=== PATIENT | male | born 1955 | race Caucasian/White ===

== ENCOUNTER 2019-08-23 08:47 | Day surgery (SDC) | payer BC ==
[~2019-08-23 08:47] MED LIST: Lactated Ringers 1,000 ML IV SCH; Lidocaine 1% 4 ML ONE; Lidocaine 1%/Sod Bicarbonate in NS 8.4% 1 ML Syringe IDERM PRN; Midazolam 1 MG/ML 2 ML SDV ONE; Ondansetron 4 MG/2 ML SDV ONE; Propofol 200 MG/20 ML SDV ONE; Rocuronium 50 MG/5 ML Vial ONE; Sodium Chloride 0.9% 10 ML Syringe FLUSH PRN; fentaNYL 250 MCG/5 ML SDV ONE
[2019-08-23] MEDS ORDERED: Bupivacaine 0.5%/EPINEPHrine 1:200,000 50 ML MDV ONE (09:15)
--- NOTE | 2019-08-23 09:15 | PCM.PREANE ---
Preanesthetic Assessment - Procedure Proposed Procedure: lap bilateral inguinal hernia repair - Anesthesia/Transfusion/Family Hx Anesthesia History: Prior Anesthesia Without Reaction Family History of Anesthesia Reaction: No Transfusion History: No Prior Transfusion(s) - Review of Systems General: No Symptoms Pulmonary: Other (caught a cold this weekend- stuffy) Cardiovascular: No Symptoms Gastrointestinal: No Symptoms Neurological: No Symptoms Other: Reports: Diabetes, Sinus Problem (cold) - Physical Assessment NPO Status Date: 08/22/19 NPO Status Time: 23:55 Vital Signs: 128/88 82 96% 16 97.1 Height: 5 ft 11 in Weight: 90.083 kg ASA Class: 2 Mental Status: Alert & Oriented x3 Airway Class: Mallampati = 2 Dentition: Reports: Normal Dentition Thyro-Mental Finger Breadths: 3 Mouth Opening Finger Breadths: 3 ROM/Head Extension: Full Lungs: Clear to Auscultation, Normal Respiratory Effort Cardiovascular: Regular Rate, Regular Rhythm - Allergies Allergies/Adverse Reactions: Allergies Allergy/AdvReac Type Severity Reaction Status Date / Time hydrocodone Allergy Headache Verified 08/22/19 13:43 - Blood Blood Available: No - Acknowledgements Anesthesia Type Planned: General Anesthesia Pt an Appropriate Candidate for the Planned Anesthesia: Yes Alternatives and Risks of Anesthesia Discussed w Pt/Guardian: Yes Pt/Guardian Understands and Agrees with Anesthesia Plan: Yes PreAnesthesia Questionnaire HEENT History: Reports: None Cardiovascular History: Reports: Heart Murmur, Heart Valve Replacement, High Cholesterol, Hypertension Respiratory History: Reports: None Gastrointestinal History: Reports: GERD, Other (See Below) Other Gastrointestinal History: right inguinal hernia Genitourinary History: Reports: BPH, Prostate Disorder, Other (See Below) Other Genitourinary History: frequency, nocturia 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 Musculoskeletal History: Reports: Arthritis, Neck Pain, Chronic Other Musculoskeletal History: foot pain, shoulder pain Psychiatric History: Reports: None Endocrine/Metabolic History: Reports: None Hematologic History: Reports: Anemia Immunologic History: Reports: None Oncologic (Cancer) History: Reports: None Dermatologic History: Reports: None - Past Surgical History HEENT Surgical History: Reports: Tonsillectomy Cardiovascular Surgical History: Reports: Valve Replacement Respiratory Surgical History: Reports: None GI Surgical History: Reports: Hernia Repair/Other Male Surgical History: Reports: Vasectomy Endocrine Surgical History: Reports: None Neurological Surgical History: Reports: C-Spine Other Neurological Surgeries/Procedures: C5C6C7 fusion Musculoskeletal Surgical History: Reports: None Oncologic Surgical History: Reports: None Dermatological Surgical History: Reports: None - SUBSTANCE USE Smoking Status *Q: Former Smoker (quit 2011) Tobacco Use Within Last Twelve Months: No Second Hand Smoke Exposure: Yes Days Per Week of Alcohol Use: 2 Number of Drinks Per Day: 2 Total Drinks Per Week: 4 Recreational Drug Use History: No - HOME MEDS Home Medications: Home Meds Acetaminophen [Tylenol] 650 mg PO Q6H PRN 04/29/16 [History] Ezetimibe [Zetia] 10 mg PO DAILY 04/29/16 [History] Finasteride 5 mg PO DAILY 04/29/16 [History] Omeprazole 20 mg PO DAILY 04/29/16 [History] Saw/Vit E/Sod Neda/Lyc/Beta/Pyg [Prostate Health Caplet] 1 each PO DAILY [History] Tamsulosin HCl 1 cap PO DAILY 04/29/16 [History] Ascorbic Acid [Vitamin C with Lizzy Hips] 1,000 mg PO DAILY 08/22/19 [History] Calcium Carb/Mag Ox/Zinc Gluc [Ywukwqm-Wnhhpoumk-Bpos] 1 tab PO DAILY 08/22/19 [ History] Fenofibrate Nanocrystallized [Fenofibrate] 145 mg PO DAILY 08/22/19 [History] Irbesartan 300 mg PO DAILY 08/22/19 [History] Lactobacillus Combo No.10 [Probiotic] 1 cap PO DAILY 08/22/19 [History] Lutein 20 mg PO DAILY 08/22/19 [History] Multivit-Min/Folic/Vit K/Lycop [Men's Multivitamin Tablet] 1 tab PO DAILY [History] Saw [place] Fruit [Saw [place]] 450 mg PO DAILY 08/22/19 [History] metFORMIN HCl [Metformin HCl ER] 500 mg PO BID 08/22/19 [History] - CURRENT (IN HOUSE) MEDS Current Meds: Current Medications Discontinued Medications Fentanyl (Sublimaze) Confirm Administered Dose 250 mcg .ROUTE .STK-MED ONE Stop: 08/23/19 08:32 Lactated Ringer's (Ringers, Lactated) 1,000 mls @ 125 mls/hr IV ASDIRECTED NEAL Stop: 08/22/19 23:00 Lidocaine HCl (Xylocaine-Mpf 1%) Confirm Administered Dose 4 mls @ as directed .ROUTE .STK-MED ONE Stop: 08/23/19 08:32 Lidocaine/Sodium Bicarbonate (Buffered Lidocaine 1% In Ns 8.4%) 0.25 ml IDERM ONETIME PRN PRN Reason: Prior to IV Start Stop: 08/22/19 23:00 Midazolam HCl (Versed 1 Mg/Ml) Confirm Administered Dose 2 mg .ROUTE .STK-MED ONE Stop: 08/23/19 08:32 Ondansetron HCl (Zofran) Confirm Administered Dose 4 mg .ROUTE .STK-MED ONE Stop: 08/23/19 08:32 Propofol (Diprivan 20 Ml) Confirm Administered Dose 200 mg .ROUTE .STK-MED ONE Stop: 08/23/19 08:32 Rocuronium Calypso (Zemuron) Confirm Administered Dose 50 mg .ROUTE .STK-MED ONE Stop: 08/23/19 08:32 Sodium Chloride (Saline Flush) 10 ml FLUSH ASDIRECTED PRN PRN Reason: Keep Vein Open Stop: 08/22/19 23:00
[2019-08-23] MEDS ORDERED: ceFAZolin 1 GM Vial ONE (10:07)
[2019-08-23] MEDS ORDERED: fentaNYL 100 MCG/2 ML SDV IVPUSH PRN (10:18)
[2019-08-23] MEDS ORDERED: Ondansetron 4 MG/2 ML SDV IVPUSH PRN (10:18)
[2019-08-23] MEDS ORDERED: HYDROmorphone 0.5 MG/0.5 ML Syringe IVPUSH PRN (10:18)
[2019-08-23] MEDS ORDERED: Rocuronium 50 MG/5 ML Vial ONE (11:00)
[2019-08-23] MEDS ORDERED: Lactated Ringers 1,000 ML ONE (11:01)
[2019-08-23] MEDS ORDERED: HYDROmorphone 0.5 MG/0.5 ML Syringe ONE ×2 (11:02→11:23)
[2019-08-23] MEDS ORDERED: fentaNYL 100 MCG/2 ML SDV ONE (11:46)
[2019-08-23] MEDS ORDERED: Ketorolac 30 MG/ML SDV ONE (11:52)
--- NOTE | 2019-08-23 12:15 | PCM.POSTAN ---
POST ANESTHESIA ASSESSMENT - MENTAL STATUS Mental Status: Alert, Oriented - VITAL SIGNS Vital Signs: Last Vital Signs Temp 36.2 C 08/23/19 08:55 Pulse 82 08/23/19 08:55 Resp 16 08/23/19 08:55 BP 128/88 08/23/19 08:55 Pulse Ox 96 08/23/19 08:55 - RESPIRATORY Respiratory Status: Respiratory Rate WNL, Airway Patent, O2 Saturation Stable - CARDIOVASCULAR CV Status: Pulse Rate WNL, Blood Pressure Stable - GASTROINTESTINAL GI Status: No Symptoms - PAIN Pain Score: 0 - POST OP HYDRATION Hydration Status: Adequate & Stable
--- NOTE | 2019-08-23 12:24 | PCM.PRNOTE ---
- Free Text/Narrative Note: Date: 08/23/2019 Operation: laparoscopic bilateral inguinal hernia repair Surgeon: Polo Thrasher MD Assisting: ALVARADO Anna Pre-op antibiotic: 2 g ancef IV EBL: 10 cc Complications: none Specimens: none Findings: reducible bilateral direct inguinal hernias Detailed Report: The patient was taken to the operating room and placed on the table in supine position. Timeout was performed. General endotracheal anesthesia was initiated. The arms were tucked at the patient's side, and the abdominal hair was clipped. The patient had voided just prior to coming to the operating room , so no Harrell catheter was placed. The abdomen was prepped and draped in usual sterile fashion. A total of 22 cc 0.5% Marcaine with epinephrine was injected at incision sites for local anesthetic throughout the case. A small sarah incision was made at the left subcostal margin in line with the midclavicular line and a Veress needle was inserted into the peritoneal cavity. The abdomen was insufflated. Air was aspirated at the left midabdomen with a syringe, and at this site a 5 mm trocar was placed. The 5 mm 30 degree laparoscope was then inserted and abdominal contents were inspected. There was evidence of prior umbilical hernia repair, with no significant adhesions. A 12 mm port was placed at the infraumbilical site, and 5 mm port placed at the right mid abdomen. The patient was then placed in Trendelenburg to reflect the viscera cephalad. The bilateral inguinal hernias were visible, and contents had been reduced at this time. Both hernias were direct inguinal hernias. First, the right hernia was addressed. Hook cautery was used to incise the peritoneum along the line extending from the right ASIS to the right medial umbilical fold. Blunt dissection was used to separate the peritoneal flap from the overlying properitoneal fat and inferior epigastric vessels. This dissection was carried down to the right pubic tubercle, and dissection was then carried out laterally. The hernia sac was grasped and from cord structures, and the sac was everted into the peritoneal space. The myopectineal orifice was widely cleared for placement of mesh. A piece of 15 x 9 cm pro-manager latin mesh was cut to shape, and introduced into the abdomen. The mesh was placed with good overlap medially and inferiorly to Shahriar's ligament. The mesh was secured at this location with the secure strap device. The mesh was laid flat, and the peritoneal flap was then closed using the secure strap. A small rent in the peritoneum that occurred during dissection was closed with an interrupted Vicryl suture. Additional tiny holes in the peritoneum were closed with placement of 5 mm clips. Next, the left hernia was fixed. The sigmoid colon was adherent to the abdominal wall at the lateral aspect of her field of dissection. Careful dissection proceeded to separate the sigmoid colon from its attachments to the parietal peritoneum. The peritoneum was opened in identical fashion, and blunt dissection was carried down to the left pubic tubercle. Dissection was carried out laterally towards the ASIS. The hernia sac was easily from cord structures, and the sac was everted. Dissection proceeded to clear good landing space for the mesh to cover the myopectineal orifice. Another piece of pro-manager latin mesh was cut to shape, and introduced into the abdomen. The inferomedial aspect of the mesh was secured in place using the secure strap overlapping with Shahriar's ligament. The mesh appeared to lie flat, and in good position. The peritoneal flap was closed using the secure strap, and another small rent in the peritoneum required closure with an interrupted Vicryl suture. With both hernia sacs everted, an Endoloop was placed at each sac's base and tightened, and the sacs were sharply excised with scissors and removed from the abdominal cavity the 12 mm port was then removed, and the umbilical incision was closed at the level of fascia with a single interrupted Prolene stitch. All incisions were closed at the level of the skin with Vicryl suture and dressed with Dermabond. The drapes were removed , and proper placement of the testicles within the scrotum was confirmed. The patient tolerated the procedure well. Polo Thrasher MD General Surgery
--- NOTE | 2019-08-23 13:10 | PCM48HPAN ---
Post Anesthesia Note - EVALUATION WITHIN 48HRS OF ANESTHETIC Vital Signs in Normal Range: Yes Patient Participated in Evaluation: Yes Respiratory Function Stable: Yes Airway Patent: Yes Cardiovascular Function Stable: Yes Hydration Status Stable: Yes Pain Control Satisfactory: Yes Nausea and Vomiting Control Satisfactory: Yes Mental Status Recovered: Yes Vital Signs: Last Vital Signs Temp 36.7 C 08/23/19 13:00 Pulse 78 08/23/19 13:00 Resp 11 L 08/23/19 13:00 BP 104/78 08/23/19 13:00 Pulse Ox 94 L 08/23/19 13:00
[2019-08-23] MEDS ORDERED: oxyCODONE 5 MG Tab PO PRN (13:14)
[2019-08-23 14:03] VITALS: BP 106/55; PULSE 82
== END 2019-08-23 13:52 | disposition home or self-care (01) ==
LOC: JD.SDS 08:47
PROVIDERS: ATTEND Surgery
DX: K40.20 Bilateral inguinal hernia, without obstruction or gangrene, not specified as recurrent (principal); I10 Essential (primary) hypertension; E78.5 Hyperlipidemia, unspecified; R73.03 Prediabetes; K21.9 Gastro-esophageal reflux disease without esophagitis; N40.0 Benign prostatic hyperplasia without lower urinary tract symptoms; G89.29 Other chronic pain; M54.2 Cervicalgia; M79.673 Pain in unspecified foot; M19.90 Unspecified osteoarthritis, unspecified site; Z87.891 Personal history of nicotine dependence; Z88.8 Allergy status to other drugs, medicaments and biological substances; Z79.84 Long term (current) use of oral hypoglycemic drugs; Z79.899 Other long term (current) drug therapy; Z95.2 Presence of prosthetic heart valve
CPT/HCPCS: 49650; 82962; A9270; J0690; J1170; J1885; J2001; J2250; J2405; J2704; J3010; J3490; J7120; 00840; C1781

== ENCOUNTER 2019-12-10 11:44 | Emergency (ER) | payer BC ==
[2019-12-10 12:03] VITALS: BP 122/87; PULSE 79
--- NOTE | 2019-12-10 12:22 | EDM.PDOC ---
ED HPI GENERAL MEDICAL PROBLEM - General Chief Complaint: General Stated Complaint: DENTAL COMPLAINT Time Seen by Provider: 12/10/19 11:58 Source of Information: Reports: Patient, RN Notes Reviewed History Limitations: Reports: No Limitations - History of Present Illness INITIAL COMMENTS - FREE TEXT/NARRATIVE: Patient is a 64-year-old male who presents to the ED for evaluation of a dental complaint. The patient notes that he has been having issues with a tooth on the upper left side of his face for the last 2 days. He does have an appointment scheduled with his dentist, for Thursday morning, but states that last night the pain was excruciating and he did not think he could make it until then. He has been using Tylenol/ibuprofen for pain relief, and had some tramadol as well and took 1 of these and this seemed to help relieve the pain enough to get him to sleep, he believes that he has an infection in his tooth and was thinking that he needed antibiotics, this what brings him to the ER today. Patient denies any fevers or chills, or any other sick-like symptoms. Patient states that the pain is mostly when he chews anything, and feels like a pressure in that area. 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, NSAIDS, Other (see below) Other Treatments HYDRAULIC DREDGE OPERATOR: tramadol Left Upper Tooth/Teeth Pain Score (Numeric/FACES): 5 - Related Data Allergies Allergy/AdvReac Type Severity Reaction Status Date / Time hydrocodone AdvReac Headache Verified 12/10/19 12:02 Home Meds: Home Meds Acetaminophen [Tylenol] 650 mg PO Q6H PRN 04/29/16 [History] Ezetimibe [Zetia] 10 mg PO DAILY 04/29/16 [History] Finasteride 5 mg PO DAILY 04/29/16 [History] Omeprazole 20 mg PO DAILY 04/29/16 [History] Saw/Vit E/Sod Neda/Lyc/Beta/Pyg [Prostate Health Caplet] 1 each PO DAILY [History] Tamsulosin HCl 1 cap PO DAILY 04/29/16 [History] Ascorbic Acid [Vitamin C with Lizzy Hips] 1,000 mg PO DAILY 08/22/19 [History] Calcium Carb/Mag Ox/Zinc Gluc [Vnehrcl-Oalofkulx-Rrvp] 1 tab PO DAILY 08/22/19 [ History] Fenofibrate Nanocrystallized [Fenofibrate] 145 mg PO DAILY 08/22/19 [History] Irbesartan 300 mg PO DAILY 08/22/19 [History] Lactobacillus Combo No.10 [Probiotic] 1 cap PO DAILY 08/22/19 [History] Lutein 20 mg PO DAILY 08/22/19 [History] Multivit-Min/Folic/Vit K/Lycop [Men's Multivitamin Tablet] 1 tab PO DAILY [History] Saw [place] Fruit [Saw [place]] 450 mg PO DAILY 08/22/19 [History] metFORMIN HCl [Metformin HCl ER] 500 mg PO BID 08/22/19 [History] Aspirin [Adult Low Dose Aspirin EC] 81 mg PO DAILY 08/23/19 [History] Celecoxib [CeleBREX] 200 mg PO DAILY 08/23/19 [History] Gabapentin [Neurontin] 300 mg PO BID 08/23/19 [History] oxyCODONE 5 mg PO Q4H #10 tab 08/23/19 [Rx] Amoxicillin/Clavulanate K [Augmentin 875-125 MG] 1 tab PO BID #14 tablet [Rx] Past Medical History Cardiovascular History: Reports: Heart Murmur, Heart Valve Replacement, High Cholesterol, Hypertension Gastrointestinal History: Reports: GERD, Other (See Below) Other Gastrointestinal History: right inguinal hernia Genitourinary History: Reports: BPH, Prostate Disorder, Other (See Below) Other Genitourinary History: frequency, nocturia Musculoskeletal History: Reports: Arthritis, Neck Pain, Chronic Other Musculoskeletal History: foot pain, shoulder pain Hematologic History: Reports: Anemia - Past Surgical History HEENT Surgical History: Reports: Tonsillectomy Cardiovascular Surgical History: Reports: Valve Replacement GI Surgical History: Reports: Hernia Repair/Other Male Surgical History: Reports: Vasectomy Neurological Surgical History: Reports: C-Spine Other Neurological Surgeries/Procedures: C5C6C7 fusion Social & Family History - Tobacco Use Smoking Status *Q: Never Smoker - Caffeine Use Caffeine Use: Reports: Coffee - Recreational Drug Use Recreational Drug Use: No ED ROS GENERAL - Review of Systems Review Of Systems: Comprehensive ROS is negative, except as noted in HPI. ED EXAM, GENERAL - Physical Exam Exam: See Below Exam Limited By: No Limitations General Appearance: Alert, WD/WN, No Apparent Distress Eye Exam: Bilateral Eye: EOMI, Normal Inspection, PERRL Ears: Normal External Exam Nose: Normal Inspection Throat/Mouth: Normal Inspection, Normal Lips, Normal Teeth (multiple teeth with multiple caps, the tooth in questions is tender with palpation, there is some redness along the gum line, This is a molar on the upper left side of the patient's jaw.), Normal Oropharynx, Normal Voice Head: Atraumatic, Normocephalic Neck: Normal Inspection Respiratory/Chest: No Respiratory Distress, Lungs Clear, Normal Breath Sounds, No Accessory Muscle Use, Chest Non-Tender Cardiovascular: Normal Peripheral Pulses, Regular Rate, Rhythm, No Murmur GI/Abdominal: Normal Bowel Sounds, Soft, Non-Tender, No Distention, No Mass Extremities: Normal Inspection, Normal Capillary Refill Neurological: Alert, Oriented, Normal Cognition, No Motor/Sensory Deficits Psychiatric: Normal Affect, Normal Mood Skin Exam: Warm, Dry, Intact, Normal Color, No Rash Course - Vital Signs Last Recorded V/S: Last Vital Signs Temp 97.6 F 12/10/19 11:59 Pulse 79 12/10/19 11:59 Resp 18 12/10/19 11:59 BP 122/87 12/10/19 11:59 Pulse Ox 98 12/10/19 11:59 - Re-Assessments/Exams Free Text/Narrative Re-Assessment/Exam: 12/10/19 12:27 Patient presents to the ED for evaluation of his dental complaint. We will get him started on antibiotics, he Thiago has tramadol at home that seems to provide him pain relief, he will be advised to take that over the weekend and keep his appointment with his dentist on Thursday for definitive management and treatment. Departure - Departure Time of Disposition: 12:20 Disposition: Home, Self-Care 01 Condition: Good Clinical Impression: Pain, dental - Discharge Information *PRESCRIPTION DRUG MONITORING PROGRAM REVIEWED*: No *COPY OF PRESCRIPTION DRUG MONITORING REPORT IN PATIENT REYNOLD: No Prescriptions: Amoxicillin/Clavulanate K [Augmentin 875-125 MG] 1 tab PO BID #14 tablet Referrals: Alf Mendez MD [Primary Care Provider] - Forms: ED Department Discharge Additional Instructions: You have been evaluated in the ED for your dental pain. You have been provided with a script for Augmentin. [facility]. Please take this medication as directed. (1 tab twice daily for 7 days or until gone). This antibiotic can cause diarrhea, recommend that you start a probiotic while taking this medication. Aleve provides good pain relief for dental pain. Please take 1-2 tabs twice daily as needed for pain. You were given a prescription for Naprosyn, Please take 1 tab every 12 hours for pain relief. As you noted, you have tramadol at home, this seemed to help with the pain. Please take 1 tab every 6 hours as needed for pain not relieved by Tylenol or ibuprofen/Aleve alone. You may use hot pack/ ice packs to the affected area as tolerated in 15-20 minute intervals. Please keep your appointment with your dentist for Thursday morning, unless told otherwise by the dentist. Please return to the ED if your symptoms change or worsen. Sepsis Event Note - Evaluation Sepsis Screening Result: No Definite Risk - Focused Exam Vital Signs: Vital Signs Temp Pulse Resp BP Pulse Ox 12/10/19 11:59 97.6 F 79 18 122/87 98 Date Exam was Performed: 12/10/19 Time Exam was Performed: 12:23
== END 2019-12-10 12:46 | disposition home or self-care (01) ==
LOC: JD.ED 11:44
DX: K08.89 Other specified disorders of teeth and supporting structures (principal); K21.9 Gastro-esophageal reflux disease without esophagitis; E78.00 Pure hypercholesterolemia, unspecified; N40.0 Benign prostatic hyperplasia without lower urinary tract symptoms; Z88.5 Allergy status to narcotic agent; Z79.82 Long term (current) use of aspirin; Z79.899 Other long term (current) drug therapy
CPT/HCPCS: 99282

== ENCOUNTER 2021-04-08 07:57 | Day surgery (SDC) | payer BC ==
[~2021-04-08 07:57] MED LIST changes: +Acetaminophen 325 MG Tab PO SCH; +EPINEPHrine 1 MG/ML SDV ONE; +Lactated Ringers 1,000 ML ONE; -Lidocaine 1% 4 ML ONE; -Ondansetron 4 MG/2 ML SDV ONE; +Pregabalin 25 MG Cap PO SCH; -Rocuronium 50 MG/5 ML Vial ONE; +Ropivacaine 0.5% 5 MG/ML 30 ML SDV ONE; +ceFAZolin 1 GM Vial ONE; +fentaNYL 100 MCG/2 ML SDV ONE; -fentaNYL 250 MCG/5 ML SDV ONE; +oxyCODONE ER 10 MG TAB.ER PO SCH
--- NOTE | 2021-04-08 08:03 | PCM.PREANE ---
Preanesthetic Assessment - Anesthesia/Transfusion/Family Hx Anesthesia History: Prior Anesthesia Without Reaction Family History of Anesthesia Reaction: No Transfusion History: No Prior Transfusion(s) - Review of Systems General: No Symptoms Pulmonary: Other (ROBERT) Cardiovascular: Other (HTN, +murmur, hx of MT with MVR in 2011) Gastrointestinal: Other (GERD on meds with controll) Neurological: Other (HX of c spine surgery) Other: Reports: Diabetes - Physical Assessment NPO Status Date: 04/07/21 NPO Status Time: 22:00 Weight: 86 kg ASA Class: 3 Mental Status: Alert & Oriented x3 Airway Class: Mallampati = 2 Dentition: Reports: Normal Dentition Thyro-Mental Finger Breadths: 3 Mouth Opening Finger Breadths: 3 ROM/Head Extension: Full Lungs: Clear to Auscultation, Normal Respiratory Effort Cardiovascular: Regular Rate, Regular Rhythm, Murmurs - Imaging/EKG Impressions: SR at 70 with old MT - Allergies Allergies/Adverse Reactions: Allergies Allergy/AdvReac Type Severity Reaction Status Date / Time hydrocodone AdvReac Headache Verified 12/10/19 12:02 - Blood Blood Available: No Product(s) Available: None - Anesthesia Plan Pre-Op Medication Ordered: None - Acknowledgements Anesthesia Type Planned: Spinal Pt an Appropriate Candidate for the Planned Anesthesia: Yes Alternatives and Risks of Anesthesia Discussed w Pt/Guardian: Yes Pt/Guardian Understands and Agrees with Anesthesia Plan: Yes PreAnesthesia Questionnaire HEENT History: Reports: None Cardiovascular History: Reports: Heart Murmur, Heart Valve Replacement, High Cholesterol, Hypertension Respiratory History: Reports: None Gastrointestinal History: Reports: GERD, Other (See Below) Other Gastrointestinal History: right inguinal hernia Genitourinary History: Reports: BPH, Prostate Disorder, Other (See Below) Other Genitourinary History: frequency, nocturia 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 Musculoskeletal History: Reports: Arthritis, Neck Pain, Chronic Other Musculoskeletal History: foot pain, shoulder pain Psychiatric History: Reports: None Endocrine/Metabolic History: Reports: None Hematologic History: Reports: Anemia Immunologic History: Reports: None Oncologic (Cancer) History: Reports: None Dermatologic History: Reports: None - Past Surgical History HEENT Surgical History: Reports: Tonsillectomy Cardiovascular Surgical History: Reports: Valve Replacement Respiratory Surgical History: Reports: None GI Surgical History: Reports: Hernia Repair/Other Male Surgical History: Reports: Vasectomy Endocrine Surgical History: Reports: None Neurological Surgical History: Reports: C-Spine Other Neurological Surgeries/Procedures: C5C6C7 fusion Musculoskeletal Surgical History: Reports: None Oncologic Surgical History: Reports: None Dermatological Surgical History: Reports: None - SUBSTANCE USE Tobacco Use Status *Q: Former Tobacco User Tobacco Use Within Last Twelve Months: Cigarettes Recreational Drug Use History: No - HOME MEDS Home Medications: Home Meds Ezetimibe [Zetia] 10 mg PO DAILY 04/29/16 [History] Omeprazole 20 mg PO DAILY 04/29/16 [History] Ascorbic Acid [Vitamin C with Lizzy Hips] 1,000 mg PO DAILY 08/22/19 [History] Calcium Carb/Mag Ox/Zinc Gluc [Kzdbnfa-Mrhmiurcw-Lkee] 1 tab PO DAILY 08/22/19 [History] Fenofibrate Nanocrystallized [Fenofibrate] 145 mg PO DAILY 08/22/19 [History] Irbesartan 300 mg PO DAILY 08/22/19 [History] Multivit-Min/Folic/Vit K/Lycop [Men's Multivitamin Tablet] 1 tab PO DAILY 08/22/19 [History] Saw [place] Fruit [Saw [place]] 450 mg PO DAILY 08/22/19 [History] Gabapentin [Neurontin] 400 mg PO BID 08/23/19 [History] Empagliflozin [Jardiance] 25 mg PO DAILY 04/05/21 [History] Vitamin B Complex 1 each PO DAILY 04/05/21 [History] amLODIPine Besylate [Amlodipine Besylate] 5 mg PO DAILY 04/05/21 [History] Apixaban [Eliquis] 2.5 mg PO BID #60 tablet 04/08/21 [Rx] Cyclobenzaprine [Flexeril] 10 mg PO BID PRN #20 tab 04/08/21 [Rx] oxyCODONE 5 - 10 mg PO Q4H PRN #40 tab 04/08/21 [Rx] - CURRENT (IN HOUSE) MEDS Current Meds: Current Medications Acetaminophen (Acetaminophen 325 Mg Tab) 975 mg PO ONETIME NEAL Stop: 04/08/21 14:00 Morphine Sulfate 8 mg/Epinephrine HCl 0.3 mg/Cefuroxime Sodium 750 mg/Ketorolac Tromethamine 30 mg/Sodium Chloride 7.9 ml 0 mg .XX ASDIRECTED PRN PRN Reason: Pain Stop: 04/08/21 13:00 Lactated Ringer's (Ringers, Lactated) 1,000 mls @ 125 mls/hr IV ASDIRECTED NEAL Stop: 04/08/21 23:00 Lidocaine/Sodium Bicarbonate (Lidocaine 1%/Sod Bicarbonate In Ns 8.4% 1 Ml Syringe) 0.25 ml IDERM ONETIME PRN PRN Reason: Prior to IV Start Stop: 04/08/21 18:00 Oxycodone HCl (Oxycodone Er 10 Mg Tab.Er) 10 mg PO ONETIME NEAL Stop: 04/08/21 18:00 Pregabalin (Pregabalin 25 Mg Cap) 50 mg PO ONETIME NEAL Stop: 04/08/21 18:00 Sodium Chloride (Sodium Chloride 0.9% 10 Ml Syringe) 10 ml FLUSH ASDIRECTED PRN PRN Reason: Keep Vein Open Stop: 04/08/21 18:00 Discontinued Medications Cefazolin Sodium (Cefazolin 1 Gm Vial) Confirm Administered Dose 2 gm .ROUTE .STK-MED ONE Stop: 04/08/21 07:14 Epinephrine HCl (Epinephrine 1 Mg/Ml Sdv) Confirm Administered Dose 1 mg .ROUTE .STK-MED ONE Stop: 04/08/21 07:22 Fentanyl (Fentanyl 100 Mcg/2 Ml Sdv) Confirm Administered Dose 100 mcg .ROUTE .STK-MED ONE Stop: 04/08/21 07:15 Lactated Ringer's (Ringers, Lactated) Confirm Administered Dose 1,000 mls @ as directed .ROUTE .STK-MED ONE Stop: 04/08/21 07:14 Midazolam HCl (Midazolam 1 Mg/Ml 2 Ml Sdv) Confirm Administered Dose 2 mg .ROUTE .STK-MED ONE Stop: 04/08/21 07:15 Propofol (Propofol 200 Mg/20 Ml Sdv) Confirm Administered Dose 600 mg .ROUTE .STK-MED ONE Stop: 04/08/21 07:15 Ropivacaine (Ropivacaine 0.5% 5 Mg/Ml 30 Ml Sdv) Confirm Administered Dose 30 ml .ROUTE .STK-MED ONE Stop: 04/08/21 07:23
[2021-04-08] MEDS: Vancomycin 1 GM SDV ONE ×2 (08:24→09:50)
[2021-04-08] MEDS: Morphine 8 MG, EPINEPHrine 0.3 MG, Cefuroxime 750 MG, Ketorolac 30 MG, Sodium Chloride ... PRN ×10 (09:22→09:42)
[2021-04-08] MEDS ORDERED: fentaNYL 100 MCG/2 ML SDV IVPUSH PRN (10:29)
[2021-04-08] MEDS ORDERED: Ondansetron 4 MG/2 ML SDV IVPUSH PRN (10:29)
[2021-04-08] MEDS ORDERED: HYDROmorphone 0.5 MG/0.5 ML Syringe IVPUSH PRN (10:29)
--- NOTE | 2021-04-08 10:29 | PCM.POSTAN ---
POST ANESTHESIA ASSESSMENT - MENTAL STATUS Mental Status: Alert, Oriented - VITAL SIGNS Vital Signs: Last Vital Signs Temp 36.4 C 04/08/21 08:10 Pulse 65 04/08/21 08:10 Resp 16 04/08/21 08:10 BP 127/86 04/08/21 08:10 Pulse Ox 96 04/08/21 08:10 - RESPIRATORY Respiratory Status: Respiratory Rate WNL, Airway Patent, O2 Saturation Stable, Supplemental Oxygen - CARDIOVASCULAR CV Status: Pulse Rate WNL, Blood Pressure Stable - GASTROINTESTINAL GI Status: No Symptoms - PAIN Pain Score: 0 - POST OP HYDRATION Hydration Status: Adequate & Stable
--- NOTE | 2021-04-08 10:34 | PCM.SN.2 ---
- Free Text/Narrative Note: right selective femoral nerve block at the adductor canal for post-procedure pain control under US guidance requested by Dr. Mae. Date:04/08/2021 Time Out: 1016 Start: 1016 End: 1024 Chart reviewed. Consent signed. Questions answered. Appropriate monitors applied. Time out performed. right mid-shaft femur identified with ultrasound, scanning medially of femur, the femoral artery in the adductor canal visualized, and the femoral nerve located laterally to the artery. The skin was prepped lateral to the ultrasound probe with chlorahexadine times two. The 21ga 4 insulated block needle was inserted under direct ultrasound guidance into the adductor canal. 20mL of 0.5% ropivacaine with 1:200,000 epinephrine was injected circumferentially around the nerve with intermittent negative aspiration noted. Patient tolerated the procedure well. Sterile technique noted along with sterile gloves, mask, and sterile probe cover. See picture on progress note and vital signs on nurses notes. Block completed in PACU. Jenny Graham CRNA Time Documentation
--- NOTE | 2021-04-08 10:56 | CR ---
Right knee: AP and lateral views of the right knee were obtained. Comparison: Prior right knee CT study of 03/26/21. Knee prosthesis is noted. Components are aligned. Patella prosthesis is also seen. Soft tissue air is noted. No underlying acute osseous abnormality is otherwise appreciated. Impression: 1. Satisfactory postoperative radiographic appearance of recent right knee prostheses. Diagnostic code #2
--- NOTE | 2021-04-08 10:57 | PCM48HPAN ---
Post Anesthesia Note - EVALUATION WITHIN 48HRS OF ANESTHETIC Vital Signs in Normal Range: Yes Patient Participated in Evaluation: Yes Respiratory Function Stable: Yes Airway Patent: Yes Cardiovascular Function Stable: Yes Hydration Status Stable: Yes Pain Control Satisfactory: Yes Nausea and Vomiting Control Satisfactory: Yes Mental Status Recovered: Yes Vital Signs: Last Vital Signs Temp 36.7 C 04/08/21 10:15 Pulse 65 04/08/21 08:10 Resp 18 04/08/21 10:45 BP 106/58 L 04/08/21 10:45 Pulse Ox 97 04/08/21 10:45
[2021-04-08 13:04] VITALS: BP 110/74; PULSE 64
--- NOTE | 2021-04-23 07:04 | PCM.OPNOTE ---
- General Post-Op/Procedure Note Date of Surgery/Procedure: 04/08/21 Operative Procedure(s): right total knee arthroplasty with [employer] Pre Op Diagnosis: right knee osteoarthrosis Post-Op Diagnosis: Same Anesthesia Technique: Local, MAC, Spinal Primary Surgeon: Iker Mae Anesthesia Provider: Jenny Graham Vp Talent Management: Vielka Enamorado Vp Talent Management: Ivy Patrick EBL in mLs: 150 Complications: None Condition: Good Free Text/Narrative:: / 9mm 32x10 press fit
--- NOTE | 2021-04-23 10:29 | OR ---
DATE OF OPERATION: 04/08/2021 SURGEON: Iker Mae MD OPERATION PERFORMED: Right total knee arthroplasty with [employer] robot[employer]. PREOPERATIVE DIAGNOSIS: Right knee osteoarthrosis. POSTOPERATIVE DIAGNOSIS: Right knee osteoarthrosis. ANESTHESIA: Local MAC with spinal. ANESTHESIA PROVIDER: Jenny Graham. ASSISTANTS: Vielka Enamorado PA-C and Ivy Patrick LPN. ESTIMATED BLOOD LOSS: 150 mL. COMPLICATIONS: None. CONDITION: Stable. IMPLANTS: 1. Sorin size 6 press-fit CR femur. 2. Hanson size 5 press-fit tibial baseplate. 3. Sorin size 5, 9 mm CS polyethylene insert. 4. Sorin size 32 x 10 mm press-fit patella. DESCRIPTION OF PROCEDURE: The patient was identified in the preoperative holding area. Proper site was marked and identified by the surgeon. The patient was taken back to the operative theater where after adequate anesthesia, right lower extremity had a nonsterile tourniquet applied and then sterilely prepped and draped in the usual sterile fashion. OR time-out was performed. The patient received 2 g of IV Ancef. Right lower extremity was then sterilely prepped and draped in the usual sterile fashion. OR time-out was performed. The patient received 2 g IV Ancef at this time. Leg franco was applied to the right lower extremity. Right lower extremity was exsanguinated. Tourniquet was insufflated to 250 mmHg. Standard anterior incision was made and medial parapatellar arthrotomy was created. Deep fibers of the MCL were raised and anterior fat pad was resected. Attention was turned to the patella. Patella measured a 24 and resected to a 14 for 32 x 10 mm patella. Drill holes were then drilled. Attention was turned to the femur. Two 4.0 Schanz pins were placed intraincisionally and the femur for the Sorin [employer]al robotic array. Two more were placed on the tibia 3 fingerbreadths below the tibial tubercle. The checkpoints were then placed on the tibia and the femur. Hip center rotation was obtained. Medial and lateral malleoli were marked as well as the checkpoints were marked. At this time, 40 points were obtained on both the femur and the tibia for the Hanson [employer] robotic plan. The patient's knee was brought to full extension. Varus and valgus stresses were applied, and then in 90 degrees of flexion, IS Decisions robotic plan for this patient was then undertaken to match the flexion and extension gaps. A straight saw blade was then brought in. Tibial cut was completed as well as anterior femoral cut, anterior chamfer cut, and posterior femoral cut. A saw blade was then switched and distal femoral cut as well as posterior chamfer cuts were completed. All bony fragments were removed. Medial and lateral meniscus were resected and the posterior osteophytes were removed. At this time, attention was turned to the tibia. The size 5 trial baseplate was placed on the tibia and a size 6 trial femur was placed on the femur. A 9 mm trial poly was placed. The patient's knee was brought to full extension and flexion. The patient had full range of motion. No signs of liftoff or loosening on the tibial baseplate. At this time, femoral drill holes were drilled and the tibia was stamped and drilled in proper rotation. All trial implants were then removed. The size 5 tibial baseplate was impacted into place, size 6 femoral component was impacted into place, and then a 9 mm CS polyethylene insert was impacted into place. A 32 x 10 mm press-fit patella was then press-fit into place. The tourniquet was deflated. Bleeders were cauterized. 1 L pulse lavage irrigation with Ancef was irrigated through the knee along with 400 mL Irrisept irrigation. Periarticular injection was completed. Topical tranexamic acid and vancomycin powder were applied. All checkpoints and pins were removed. At this point, a #2 barbed suture was used for closure of the medial parapatellar arthrotomy, 2-0 Vicryl and Stratafix were used for subcutaneous closure, and Prineo was used for skin closure. 3-0 nylons were used for closure of the pin holes on the tibia. The patient had a sterile soft dressing applied and was sent to the PACU in stable condition having tolerated the procedure well. GRISELDA /[id number]
== END 2021-04-08 13:03 | disposition home or self-care (01) ==
LOC: JD.SDS 07:57
PROVIDERS: ATTEND Orthopaedic Surgery
DX: M17.11 Unilateral primary osteoarthritis, right knee (principal); N40.0 Benign prostatic hyperplasia without lower urinary tract symptoms; I10 Essential (primary) hypertension; E11.9 Type 2 diabetes mellitus without complications; E78.5 Hyperlipidemia, unspecified; G47.9 Sleep disorder, unspecified; K21.9 Gastro-esophageal reflux disease without esophagitis; I25.2 Old myocardial infarction; Z88.5 Allergy status to narcotic agent; Z79.899 Other long term (current) drug therapy; Z79.82 Long term (current) use of aspirin; Z98.890 Other specified postprocedural states; Z87.891 Personal history of nicotine dependence
CPT/HCPCS: 27447; 73560; 82947; 97116; 97161; A9270; C1713; C1776; J0171; J0690; J0697; J1885; J2250; J2270; J2370; J2704; J2795; J3010; J3370; J7120; 01402; 64450; 76942

== ENCOUNTER 2022-06-19 07:52 | Day surgery (SDC) | payer BC ==
[~2022-06-19 07:52] MED LIST changes: -Acetaminophen 325 MG Tab PO SCH; -EPINEPHrine 1 MG/ML SDV ONE; -Lactated Ringers 1,000 ML ONE; -Midazolam 1 MG/ML 2 ML SDV ONE; -Pregabalin 25 MG Cap PO SCH; -Propofol 200 MG/20 ML SDV ONE; -Ropivacaine 0.5% 5 MG/ML 30 ML SDV ONE; +Sodium Chloride 0.9% 10 ML Syringe FLUSH SCH; -ceFAZolin 1 GM Vial ONE; -fentaNYL 100 MCG/2 ML SDV ONE; -oxyCODONE ER 10 MG TAB.ER PO SCH
[2022-06-19] MEDS ORDERED: EPINEPHrine 1 MG/ML 30 ML MDV IRR SCH (08:00)
[2022-06-19] MEDS ORDERED: Lidocaine 2% with EPINEPHrine 1:200,000 20 ML SDV ONE (08:16)
[2022-06-19] MEDS ORDERED: Propofol 200 MG/20 ML SDV ONE (08:23)
[2022-06-19] MEDS ORDERED: Lidocaine 1% 4 ML ONE (08:24)
[2022-06-19] MEDS ORDERED: ceFAZolin 2 GM Vial ONE (08:26)
[2022-06-19] MEDS ORDERED: Bupivacaine 0.25% 10 ML SDV ONE (08:30)
[2022-06-19] MEDS ORDERED: Midazolam 1 MG/ML 2 ML SDV ONE (08:32)
[2022-06-19] MEDS ORDERED: fentaNYL 100 MCG/2 ML SDV IVPUSH PRN (09:55)
[2022-06-19] MEDS ORDERED: Ondansetron 4 MG/2 ML SDV IVPUSH PRN (09:55)
[2022-06-19] MEDS ORDERED: diphenhydrAMINE 50 MG/ML SDV IVPUSH PRN (09:55)
[2022-06-19] MEDS ORDERED: Lactated Ringers 1,000 ML ONE (09:58)
[2022-06-19] MEDS ORDERED: Ondansetron 4 MG/2 ML SDV ONE (09:58)
[2022-06-19] MEDS ORDERED: Ketorolac 30 MG/ML SDV ONE (09:58)
[2022-06-19 13:14] VITALS: BP 90/60; PULSE 60
== END 2022-06-19 12:45 | disposition home or self-care (01) ==
LOC: JD.SDS 07:52
PROVIDERS: ATTEND Orthopaedic Surgery
DX: T84.82XA Fibrosis due to internal orthopedic prosthetic devices, implants and grafts, initial encounter (principal); D64.9 Anemia, unspecified; M19.90 Unspecified osteoarthritis, unspecified site; I10 Essential (primary) hypertension; E78.5 Hyperlipidemia, unspecified; G47.30 Sleep apnea, unspecified; E11.9 Type 2 diabetes mellitus without complications; N40.0 Benign prostatic hyperplasia without lower urinary tract symptoms; M54.2 Cervicalgia; G89.29 Other chronic pain; Z88.5 Allergy status to narcotic agent; Z79.899 Other long term (current) drug therapy; Z79.82 Long term (current) use of aspirin; Z98.890 Other specified postprocedural states; Z87.891 Personal history of nicotine dependence; Z96.651 Presence of right artificial knee joint; Z98.1 Arthrodesis status
CPT/HCPCS: 29876; J0690; J1885; J2250; J2405; J2704; J3490; J7120; 01400

== ENCOUNTER 2024-01-26 08:57 | Day surgery (SDC) | payer BC, MEDICARE ==
[~2024-01-26 08:57] MED LIST changes: -Lidocaine 1%/Sod Bicarbonate in NS 8.4% 1 ML Syringe IDERM PRN
[2024-01-26] MEDS: Lactated Ringers 1,000 ML IV SCH (09:20)
[2024-01-26] MEDS ORDERED: Propofol 200 MG/20 ML SDV ONE (09:41)
[2024-01-26 11:55] VITALS: BP 128/70; PULSE 72
== END 2024-01-26 10:55 | disposition home or self-care (01) ==
LOC: JD.SDS 08:57
PROVIDERS: ATTEND Surgery
DX: K62.5 Hemorrhage of anus and rectum (principal); K57.30 Diverticulosis of large intestine without perforation or abscess without bleeding; K21.9 Gastro-esophageal reflux disease without esophagitis; I10 Essential (primary) hypertension; E11.9 Type 2 diabetes mellitus without complications; E78.00 Pure hypercholesterolemia, unspecified; N40.0 Benign prostatic hyperplasia without lower urinary tract symptoms; Z87.891 Personal history of nicotine dependence; Z79.82 Long term (current) use of aspirin; Z79.899 Other long term (current) drug therapy; Z88.5 Allergy status to narcotic agent
CPT/HCPCS: 45378; J2704; J7120